=== PATIENT | male | born 1940 | race Caucasian/White ===

== ENCOUNTER → 2017-09-30 | Outpatient (CLI) | payer OTHER ==
[~2017-09-30] MED LIST: BAYER CHEWABLE81 MG PO; CYMBALTA30 MG PO; DOLOPHINE HCL5 MG PO; FISH OIL 1,001000 M2 PO; FLOMAX0.4 MG PO; HYDROCODON-ACE1 EAC5 PO; HYDROCODONE-AP1 EAC6 PO; LISINOPRIL20 MG PO; LOPRESSOR25 PO; METHADONE HCL 110 M1 PO; METHADONE HCL5 MG PO; MOBIC7.5 MG PO; NEURONTIN600 MG PO; NORCO 10-325 T1 EACH PO; SERTRALINE HCL50 MG PO
--- NOTE | 2017-10-16 07:40 | PAINCON ---
[address] [address] PAIN MANAGEMENT CONSULTATION Name: DEBBY BARON Room: [facility] ANIBAL Young#: [id number] Admission: 09/30/17 Attend Phys: Rahat Martinez DO Discharge: Date of : 40 Report #: [id number] THIS REPORT FOR: //name// CC: Rahat Atkinson MD DATE OF SERVICE: 09/30/2017 CHIEF COMPLAINT: Chronic pain. HISTORY OF PRESENT ILLNESS: As you know, the patient is a 77-year-old male followed by my partner, Dr. Carloz De La Rosa, at our [facility] office. Due to convenience, the patient was provided a visit to our clinic here at [facility]. The patient lives in the [place] area and this is much more convenient for the patient to receive medication therapy. He has been referred to our clinic by his physician, Dr. De La Rosa, for continuation of methadone therapy. He is taking 5 mg 3 times a day for baseline pain control. Despite this medication, he continues to report pain level of 4-5/10. States pain is exacerbated with walking, standing, lifting, bending, improves with medications. He is currently in a scooter for ambulation. He has had no changes in medical history since his last visit with Dr. De La Rosa. ALLERGIES: No known drug allergies. CURRENT MEDICATIONS: Aspirin 81 mg per day, omega-3 fish oil 1000 mg per day, gabapentin 600 mg 4 times a day, hydrocodone 10/325 one tab every 4 hours p.r.n. for pain, meloxicam 7.5 mg twice a day, sertraline 100 mg once a day, tamsulosin 0.4 mg once a day, methadone 5 mg t.i.d. SOCIAL HISTORY: Unchanged. The patient denies tobacco use. Denies IV or illicit drug use. He is retired. He is noting decrease activity. He is unaccompanied today. IMAGING: No new imaging available. PHYSICAL EXAMINATION: VITAL SIGNS: Blood pressure 147/68, pulse is 97, respiratory rate 16, unlabored. The patient is 94% on room air, current temperature 98.3 degrees Fahrenheit, height 5 feet 8 inches tall, weight 246.2 pounds, BMI calculated 37.6. GENERAL: Well-developed, well-nourished, well-hydrated, morbidly obese 77-year-old male who appears his stated age. He is placing pain score around 5/10. HEENT: Normocephalic, atraumatic. Pupils equal, round, reactive to light. Extraocular [place] [address] PAIN MANAGEMENT CONSULTATION Name: DEBBY BARON [id number] Admission: 09/30/17 Attend Phys: Rahat Martinez DO Discharge: Date of : 40 Report #: [id number] EXTREMITIES: Show no clubbing, no cyanosis, no edema. MUSCULOSKELETAL: Seated straight leg raising negative. Supine straight leg raising positive. Tressa's test negative. Modified Gaenslen's positive for axial low back pain. Ankle clonus negative. Babinski is negative. Muscle bulk and tone is symmetrical in lower extremities, though weakness noted bilaterally due to deconditioning. ASSESSMENT: 1. Symptomatic lumbar radiculopathy. 2. Lumbosacral spondylosis with radiculopathy. 3. Lumbar degeneration. 4. Failed lumbar spine surgery. 5. Chronic intractable pain. PLAN: 1. The patient returns today in followup visit for medication management. He has transferred his care out to our clinic here at [facility] for continuation of medication therapy due to convenience to his home, reducing the commute time for the patient. He has been established today. He has appointment for refills of his methadone for the next 3 months. He has been utilizing the medication appropriately. Denies any side effects with its use. 2. The patient was provided prescription of methadone 5 mg dose 1 tab p.o. t.i.d., #90, releases of today, 4 weeks from today, 8 weeks from today, 3 months' worth of medication. The patient was advised to take this medication as directed, not to utilize the medication prophylactically. <ELECTRONICALLY SIGNED> By: Rahat Martinez DO 10/16/17 0740 [id number] Martinez DO /nt
== END ==
LOC: M.PC 01:13
DX: M47.27 Other spondylosis with radiculopathy, lumbosacral region (principal); M47.896 Other spondylosis, lumbar region

== ENCOUNTER → 2017-12-31 | Outpatient (CLI) | payer OTHER ==
--- NOTE | 2018-01-15 08:21 | PAINCON ---
[address] [address] PAIN MANAGEMENT CONSULTATION Name: DEBBY BARON Room: [facility] ANIBAL Young#: [id number] Admission: 12/31/17 Attend Phys: Parish Lee MD Discharge: Date of : 40 Report #: [id number] THIS REPORT FOR: //name// CC: Romero Lee DATE OF SERVICE: 12/31/2017 CHIEF COMPLAINT: Chronic back pain. HISTORY OF PRESENT ILLNESS: The patient is a 77-year-old gentleman who has been seen in the pain clinic. This is my first visit with this patient. He has been followed by Dr. Clive Martinez. He has a long history of back problems. He has had back surgeries in the past. Because of the continuous pain he has undergone physical therapy. He has had pain, which was quite problematic. After failure of back surgeries, the patient was then tried on dorsal column stimulator. This failed to significantly improve his function. He has been on opioid medications for some time. He finds that they are helpful, but they have not totally relieve his pain. The patient finds that his pain is still pretty problematic and prevents him from doing a lot of activities of daily living. He has been taking methadone 5 mg 3 times a day for baseline pain control. He notes his pain is exacerbated with walking, standing, lifting, bending, but does improve with his medication. He also finds ambulation problematic. He uses a scooter. ALLERGIES: LIPITOR. CURRENT MEDICATIONS: Aspirin 81 mg chewable, fish oil 1000 mg, gabapentin 600 mg q.i.d., [place] 10/325 one p.o. q. 4-6 hours, Meloxicam 7.5 mg b.i.d., methadone 5 mg t.i.d., Flomax 0.4 mg q. 24 hours. On 12/31/2017, stopped taking Zoloft 50 mg, has a new antidepressant medication, name of which he cannot recall. PAST MEDICAL HISTORY: Hypertension, joint disease/back pain, depression. Abdominal aortic aneurysm judged to be about 6 cm as the patient recalls an hour back to the pain clinic. PAST SURGICAL HISTORY: ____ back surgery in 1980; low back surgery x 4 in 2000, 2010, 2014; right shoulder surgery; bilateral hand surgeries; right knee surgery; left wrist surgery. SOCIAL HISTORY: He used to work in heating and cooling. He has not worked in about 13 years. He is retired. He is . Denies use of tobacco. Used to drink 3-4 [place] [address] PAIN MANAGEMENT CONSULTATION Name: DEBBY BARON Room: [facility]#: [id number] Admission: 12/31/17 Attend Phys: Parish Lee MD Discharge: Date of : 40 Report #: [id number] REVIEW OF SYSTEMS: Chronic back pain, depression, otherwise generally unremarkable. LABORATORY DATA: 1. No new laboratory available at the time of our interview. Old MRI dated 10/03/2015, indicates multilevel disk degeneration and degenerative spondylosis. No evidence of focal disk protrusion or significant stenosis of the central spinal canal. 2. Postsurgical changes at laminectomy extending from L2-L3 through L5-S1. 3. Persistent small posterior epidural and paravertebral seroma, decreasing in size when compared to the previous study. 4. No significant abnormal intraductal contrast enhancement. PAIN CLINIC ASSESSMENT: 1. The patient has some osteoarthritic changes in his low back area. 2. Height 5 feet 8 inches, weight 252 pounds, BMI is 38.4. 3. Vital signs: Blood pressure 150/66, heart rate 68, respiratory rate 16, room air saturation is 98%, temperature 98.4. 4. Pain intensity. The patient rates his pain as a 7-8/10. 5. Fall risk. The patient has not fallen in the last 3 months. He does ambulate with use of a riding cart. 6. Blood thinner. The patient is not on a blood thinner. 7. History of hypertension. The patient is not being treated for hypertension. 8. Opioid therapy greater than 6 weeks. The patient is on an opioid therapy and receives his medications only from 1 physician at our pain clinic. 9. Risk assessment tool. 10. Functional assessment tool. 11. Recreational drug use. The patient denies use of recreational drugs. 12. Tobacco: The patient denies use of tobacco at this juncture. 13. Alcohol. The patient denies significant use of alcohol at this juncture. PHYSICAL EXAMINATION: GENERAL: The patient is a well-developed white male. He is sitting in his electric scooter. Orientation: He is alert and oriented x 3. He appears his stated age. Affect: Appears appropriate. HEENT: Normocephalic, atraumatic. Extraocular eyes muscles intact. NECK: Without JVD or adenopathy. HEART: Regular rate. ABDOMEN: Nontender. EXTREMITIES: Upper extremity, the patient complains of some left arm pain with some pain down his arm. Complains of some weakness in his lower extremity with pain radiating down to his left leg. Note some increased pain with dorsiflexion of his left foot. Muscle strength is judged to be 4/5 for the major muscle groups in the lower extremity. MUSCULOSKELETAL: MAKAYLA test is negative. Modified Gaenslen's positive for axial low back pain. Ankle clonus is negative. Babinskis are negative. [address] [place] [address] PAIN MANAGEMENT CONSULTATION Name: DEBBY BARON Room: [facility]#: [id number] Admission: 12/31/17 Attend Phys: Parish Lee MD Discharge: Date of : 40 Report #: [id number] Appears to be weakness in the lower extremities secondary to deconditioning. IMPRESSION: 1. Symptomatic lumbar radiculopathy. 2. Lumbosacral spondylosis with radiculopathy. 3. Lumbar degeneration. 4. Failed lumbar spine surgery. 5. Failed spinal cord stimulation trial. 6. Chronic intractable pain treated with opioids. 7. Depression. 8. Abdominal aortic aneurysm approximately 5 cm. RECOMMENDATIONS: We discussed treatment options with the patient. We explained the limitations of opioid medications. At this juncture, we will continue with his current medical regimen. We have discussed the prominence of opioid and the news at this juncture. We will continue with his medications at the current level. Hopefully, this continue to be beneficial and he finds that they are worthwhile. Hopefully, they enable him to engage in activities of daily living, he would not be able to without their use. He will call us if he has any problems with his medication. We would like to thank you for letting us participate in his care. We hope he continues to improve. <ELECTRONICALLY SIGNED> By: Parish Lee MD 01/15/18 0821 0935 1546N. Jeremi Lee MD /PMT
== END ==
LOC: M.PC 12-23 09:00
DX: M48.061 Spinal stenosis, lumbar region without neurogenic claudication (principal)

== ENCOUNTER → 2018-03-25 | Outpatient (CLI) | payer OTHER ==
--- NOTE | 2018-03-26 14:14 | PAINCON ---
[address] [address] PAIN MANAGEMENT CONSULTATION Name: DEBBY BARON Room: [facility] ANIBAL Young#: [id number] Admission: 03/25/18 Attend Phys: Parish Lee MD Discharge: Date of : 40 Report #: [id number] THIS REPORT FOR: //name// CC: Romero Lee DATE OF SERVICE: 03/25/2018 FOLLOWUP COMPLAINT: Continued back pain. FOLLOWUP HISTORY: The patient is a 77-year-old gentleman who has been followed in the Pain Clinic. As you recall, he has a long history of back problems. He has undergone a number of treatments. Epidural steroid injections, spinal cord stimulator, use of opioid medications, nonsteroidal anti-inflammatory medications. Other modalities such as Neurontin, but continues to find pain problematic. He finds standing, walking, lifting and other activities of daily living quite problematic. He ambulates with use of a motor scooter. He is having pain in his left knee. It has been quite severe lately. He feels somewhat frustrated because his pain is constant. Notes that he is losing some strength. Unable to do activities which he was able to do previously like work on his car. He feels like the methadone medication might be helpful. He did decrease it to 1 tablet per day for a while. He has resumed 15 mg daily. Overall, he would like to know whether or not any additional changes in his medications could be made that might be beneficial. ALLERGIES: LIPITOR. CURRENT MEDICATIONS: Aspirin 81 mg, fish oil 1000 mg, gabapentin 600 mg q.i.d., [place] 10/325, a total of 6 tablets per day, Meloxicam 7.5 mg b.i.d., methadone 5 mg t.i.d., Flomax 0.4 mg q.24h., and Cymbalta 30 mg b.i.d. PAIN CLINIC ASSESSMENT: 1. The patient has osteoarthritic changes in his low back. Height 5 feet 8 inches, weight 252 pounds, BMI is 38. 2. Vital signs: Blood pressure 155/82, heart rate 63, respiratory rate 18, room air saturation 96, and temperature 98.7. 3. Pain intensity 12/21. 4. Fall risk. The patient has not fallen in the last 3 months. 5. Blood thinner. The patient is not on a blood thinning agent. 6. History of hypertension. The patient is not being treated for hypertension. 7. Opioid therapy greater than 6 weeks. The patient has a history of opioid use and is receiving his medications from the Pain Clinic for methadone and 6 tablets of hydrocodone from his primary physician. 8. Risk assessment tool. 9. Functional assessment tool. 10. Recreational drug use. The patient [place] [address] PAIN MANAGEMENT CONSULTATION Name: DEBBY BARON Room: [facility]#: [id number] Admission: 03/25/18 Attend Phys: Parish Lee MD Discharge: Date of : 40 Report #: [id number] 11. Tobacco: The patient denies use of tobacco at this juncture. 12. Alcohol: The patient denies significant use of alcohol. PHYSICAL EXAMINATION: GENERAL: The patient is a well-developed white male, appears his appropriate age. He is alert and oriented x 3. Speech is smooth and fluent. Affect appropriate. HEENT: Normocephalic, atraumatic. Extraocular muscles intact. Sclerae nonicteric. Hearing within normal limits. NECK: Without JVD or adenopathy. HEART: Regular rate. ABDOMEN: Nontender, slightly protuberant. EXTREMITIES: No clubbing. Upper extremity muscle strength. The patient complains of pain and discomfort in the left arm. States that when he is lifting his arm above his head, there is some limitation in its range of motion. Lower extremity, complains of pain and weakness in his lower extremities with pain radiating down to his left leg. Muscle strength is judged to be 4/5 for the major muscle groups in the lower extremity. MUSCULOSKELETAL: Without significant scoliosis, kyphosis, or lordosis. The patient has some weakness in the lower extremity secondary to deconditioning. IMPRESSION: 1. Sympathetic lumbar radiculopathy. 2. Lumbosacral spondylosis with radicular symptoms. 3. Lumbar degeneration. 4. Failed back lumbar spine surgery. 5. Failed spinal cord stimulation trial. 6. Chronic intractable pain, treated with opioids. 7. Depression. 8. Abdominal aortic aneurysm approximately 5 cm. RECOMMENDATIONS: We discussed treatment options with the patient. The patient feels that his pain is significantly problematic. He is limited in his ability to engage in activities of daily living. Overall, he feels that an improvement in his medication is needed. He is aware of the use of opioid medications causing tolerance as well as possibility of dependence. States that he finds it very difficult to engage in activities secondary to his chronic pain. We explained to him the [facility] rulings. At this juncture, we will increase his methadone from 15 mg per day to 20 mg tablet p.o. b.i.d. Hopefully, this will be enough to bump him and get him over the hope where he will note some more improvement with less pain. The patient to call us if he has any problems with his medications. [facility] [address] [place] [address] PAIN MANAGEMENT CONSULTATION Name: DEBBY BARON Room: [facility] ANIBAL Young#: [id number] Admission: 03/25/18 Attend Phys: Parish Lee MD Discharge: Date of : 40 Report #: [id number] We would like to thank you for letting us participate in his care. We hope he continues to improve. <ELECTRONICALLY SIGNED> By: Parish Lee MD 03/26/18 1414 1331 1518N. Jeremi Lee MD /nt
== END ==
LOC: M.PC 00:34
DX: M47.27 Other spondylosis with radiculopathy, lumbosacral region (principal); M51.16 Intervertebral disc disorders with radiculopathy, lumbar region; G89.4 Chronic pain syndrome; I71.4 Abdominal aortic aneurysm, without rupture; F32.9 Major depressive disorder, single episode, unspecified

== ENCOUNTER → 2018-06-26 | Outpatient (CLI) | payer OTHER ==
--- NOTE | 2018-07-28 10:00 | PAINCON ---
[address] [address] PAIN MANAGEMENT CONSULTATION Name: DEBBY BARON Room: [facility] ANIBAL Young#: [id number] Admission: 06/26/18 Attend Phys: Parish Lee MD Discharge: Date of : 40 Report #: [id number] THIS REPORT FOR: //name// CC: Romero Lee DATE OF SERVICE: 06/26/2018 FOLLOWUP COMPLAINT: Here for medication renewal. FOLLOWUP HISTORY: The patient is a 78-year-old gentleman who has been followed in the pain clinic. As you recall, he has a number of pain generators. He has pain and discomfort involving his shoulders, knees, back and continues to find his pain is helped with medications. He has had epidural steroid injections, spinal cord stimulator and continues to use opioid medications and nonsteroidal anti-inflammatory medications. He feels that the gabapentin medication is helpful as well. He states that he continues to loose muscle strength. He feels weaker as time goes on. He has some difficulty in moving around on a daily basis. He has some problems with his left knee. He does ride in his motor scooter. Rates his pain as a 6-7 on most occasions. He has fallen a couple times since we saw him last. States that he has fallen and fell to his knees. He was answering the door a special delivery lateral was being brought by the mail service. He would like to renew his pain medications at this time. He does have a somewhat depressing outlook, which he says that he can get better, but he has no real options in the near future. ALLERGIES: LIPITOR. MEDICATIONS: Aspirin 81 mg, fish oil 1000 mg, gabapentin 600 mg q.i.d., [place] 10/325 total 6 tablets per day, Meloxicam 7.5 mg b.i.d., methadone 5 mg t.i.d., Flomax 0.4 mg q. 24 hours, and Cymbalta 30 mg b.i.d. PAIN CLINIC ASSESSMENT: 1. The patient has osteoarthritic changes in his low back. He has some signs of arthritic changes in his hands as well. 2. Height 5 feet 8 inches, weight 252 pounds, BMI is 38. 3. VITAL SIGNS: Blood pressure 137/77, heart rate 83, respiratory rate 16, room air saturation 94%, temperature 98.7. 4. Pain score 6-7/10. 5. Fall risk. The patient states that he has fallen a couple times this month. Does use when rolling walker in his home. He does ride on a motorized scooter. 6. History of hypertension. The patient states that he was treated for hypertension, but stopped taking his medication because he did feel he needed it. 7. Opioid therapy greater than 6 weeks. The patient receives his medications from the pain clinic [place] [address] PAIN MANAGEMENT CONSULTATION Name: DEBBY BARON Room: [facility]#: [id number] Admission: 06/26/18 Attend Phys: Parish Lee MD Discharge: Date of : 40 Report #: [id number] 8. Risk assessment tool. 9. Functional assessment tool. 10. Recreational drug use. The patient denies use of recreational drugs. 11. Tobacco: The patient stopped tobacco 30 years ago. 12. Alcohol: The patient denies use of alcoholic beverages. PHYSICAL EXAMINATION: GENERAL: The patient is a well-developed, well-nourished white male, appears his staged age. He is alert and oriented x 3. His affect is appropriate. Speech is fluent. He does complain of some generalized weakness. HEENT: Normocephalic, atraumatic. Extraocular eye muscles are intact. Sclerae are nonicteric. Hearing is within normal limits. Mucous membranes are moist. NECK: Without JVD or adenopathy. HEART: Regular rate. ABDOMEN: Nontender, slightly protuberant. EXTREMITIES: No clubbing, cyanosis or edema. Upper extremity muscle strength judged to be decreasing per the patient's report. Appears to be 5- in the upper extremity. The patient complains of pain and discomfort in the lower portion of his back with pain and discomfort involving the left knee. Notes that there is some difficulty with walking. Muscle strength in the lower extremity judged to be 4/5 for the major muscle groups in the lower extremity per the patient's report. The patient without significant scoliosis, kyphosis, or lordosis. He does ride on a motorized scooter. IMPRESSION: 1. Chronic pain treated with complex medical management using opioid therapy. 2. Sympathetic lumbar radiculopathy. 3. Lumbosacral spondylosis with radicular symptoms. 4. Lumbar degeneration. 5. Failed back syndrome/spine surgery. 6. Failed a spinal cord stimulator trial. 7. Chronic intractable pain, treated with opioids. 8. Depression. 9. Abdominal aortic aneurysm approximately 5 cm. RECOMMENDATIONS: We discussed treatment options with the patient. The patient relates his symptoms and continue to feel that he is weakening. He finds overall that this is depressing given his advancing age. He would like to continue with his medications at this juncture. He has had no complications with their use. We discussed the possible problems with dependence as well as less effectiveness of these medications secondary to tolerance. The patient would like to continue with his current medications at this juncture. A script for his methadone medication has been prescribed. He will continue to take methadone 10 mg 1 p.o. daily. A 3-[place] [address] PAIN MANAGEMENT CONSULTATION Name: DEBBY BARON [facility] [id number] Admission: 06/26/18 Attend Phys: Parish Lee MD Discharge: Date of : 40 Report #: [id number] We would like to thank you for letting us participate in his care. We hope he continues to improve. <ELECTRONICALLY SIGNED> By: Parish Lee MD 07/28/18 1000 [id number] 1304N. Jeremi Lee MD /nt
== END ==
LOC: M.PC 06-17 03:45
DX: M47.27 Other spondylosis with radiculopathy, lumbosacral region (principal); M51.16 Intervertebral disc disorders with radiculopathy, lumbar region; I71.2 Thoracic aortic aneurysm, without rupture; F32.9 Major depressive disorder, single episode, unspecified; G89.4 Chronic pain syndrome; Z79.899 Other long term (current) drug therapy

== ENCOUNTER → 2018-09-18 | Outpatient (CLI) | payer OTHER ==
--- NOTE | 2018-09-19 17:20 | PAINCON ---
[address] [address] PAIN MANAGEMENT CONSULTATION Name: DEBBY BARON Room: [facility] ANIBAL Young#: [id number] Admission: 09/18/18 Attend Phys: Parish Lee MD Discharge: Date of : 40 Report #: [id number] THIS REPORT FOR: //name// CC: Romero Lee DATE OF SERVICE: 09/18/2018 CHIEF COMPLAINT: Continued knee pain and back pain. FOLLOWUP HISTORY: The patient is a 78-year-old gentleman who has been followed in the pain clinic. As you recall, he has a number of pain generators. He has pain and discomfort involving his shoulders, knees, back as well as knee pain. He feels that his medications are helpful. Feels that they are less effective. He would like to change his medications from use of methadone to only hydrocodone. He has had an epidural steroid injection and spinal cord stimulator use. He feels that his medications of gabapentin are still helpful. He feels that he is getting weaker as time goes on. He is having more and more difficulty getting around. Continues to use a motor scooter. He rates his pain a 6-7 on occasion, rates it as a 7 today. States that he does fall somewhat frequently. He has returned today for renew of his medications. He feels that the government is too involved in pain medication. He feels that they are limiting the amount of medication that he is able to get therefore causing him to endure more pain than he would like. ALLERGIES: LIPITOR. MEDICATIONS: Aspirin 81 mg, fish oil 1000 mg, gabapentin 600 mg q.i.d., [place] 10 mg, total of 6 tablets per day, Meloxicam 7.5 mg b.i.d., methadone 10 mg p.o. b.i.d., Flomax 0.5 mg q.24 hours, Cymbalta 30 mg b.i.d. PAIN CLINIC ASSESSMENT/PQRS: 1. 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 Has changes in his hand as well as in his knee. The patient has not been treated for rheumatoid arthritis. 2. Height 5 feet 8 inches, weight 252 pounds, BMI is 38. 3. VITAL SIGNS: Blood pressure is 140/75, heart rate 84, respiratory rate 16, room air saturation 93%, temperature 98.5. 4. Pain intensity 5/10. 5. Fall risk. The patient states that he does frequently fall, has not needed to go to the Emergency Room. Has difficulty ambulating. Continues to use his motor scooter, which is motorized. 6. History of hypertension. The patient is being treated for hypertension. He stopped this medication because he did not feel he needed it. 7. Opioid therapy greater than 6 weeks. The [place] [address] PAIN MANAGEMENT CONSULTATION Name: DEBBY BARON Patti [id number] Admission: 09/18/18 Attend Phys: Parish Lee MD Discharge: Date of : 40 Report #: [id number] from 1 source, the pain clinic for methadone. The patient states that he gets the hydrocodone medication from his other doctor. 8. Risk assessment tool. 9. Functional assessment tool. 10. Recreational drug use. The patient denies use of recreational drugs. 11. Tobacco: The patient stopped smoking 30 years ago. 12. Alcohol: The patient denies use of alcoholic beverages. PHYSICAL EXAMINATION: GENERAL: The patient is a well-developed, well-nourished white male. Appears his stated age. He is alert and oriented x 3. Affect is appropriate. Speech is fluent. HEENT: Normocephalic, atraumatic. Extraocular eye muscles intact. Sclerae nonicteric. Mucous membranes moist. Hearing is within normal limits. HEART: Regular rate. ABDOMEN: Nontender, protuberant. EXTREMITIES: Upper extremity muscle strength is judged to be -5/5 for the upper muscles. The patient complains of pain and discomfort in lower portion of his back with pain involving his left knee. Has difficulty walking, difficulty going from a sitting to a standing position. He rates his pain as a 4-5 for the major muscle groups in the lower extremity. The patient is without significant scoliosis, kyphosis, or lordosis. Does continue to drive and ambulates with use of his motor scooter. IMPRESSION: 1. Chronic pain treated with complex medical management using opioid medication. 2. Sympathetic lumbar radiculopathy. 3. Lumbosacral spondylosis with radiculopathy symptoms. 4. Lumbar degeneration. 5. Failed back syndrome/spine surgery. 6. Failed spinal cord stimulator trial. 7. Chronic intractable pain. 8. Depression. 9. Aortic aneurysm approximately 5 cm. The patient is watching this. RECOMMENDATIONS: We discussed treatment options with the patient. At this juncture, we again had a discussion in regards to use of opioid medications. The patient would like to go to short-acting medication of hydrocodone on an 8 tablets per day. We explained to him that most of his pain programs would recommend use of a long-acting opioid medication, followed by a short-acting opioid medication. A script for methadone has been rewritten. The patient will continue with 10 mg 1 p.o. b.i.d. A script for 3 months, has been written. The [address] [place] [address] PAIN MANAGEMENT CONSULTATION Name: TODDEBBY Patti Room: [facility]#: [id number] Admission: 09/18/18 Attend Phys: Parish Lee MD Discharge: Date of : 40 Report #: [id number] patient will call us if he has any concerns. We would like to thank you for letting us participate in his care. We hope he continues to improve. <ELECTRONICALLY SIGNED> By: Parish Lee MD 09/19/18 1720 [id number]. Jeremi Lee MD /[facility]
== END ==
LOC: M.PC 04:41
DX: M47.27 Other spondylosis with radiculopathy, lumbosacral region (principal); M51.16 Intervertebral disc disorders with radiculopathy, lumbar region; G89.4 Chronic pain syndrome; F32.9 Major depressive disorder, single episode, unspecified; I71.9 Aortic aneurysm of unspecified site, without rupture; Z79.891 Long term (current) use of opiate analgesic

== ENCOUNTER → 2018-12-11 | Outpatient (CLI) | payer OTHER ==
--- NOTE | ~2018-12-11 | PAINCON ---
[address] [address] PAIN MANAGEMENT CONSULTATION Name: DEBBY BARON Room: [facility] ANIBAL Young#: [id number] Admission: 12/11/18 Attend Phys: Parish Lee MD Discharge: Date of : 40 Report #: [id number] THIS REPORT FOR: //name// CC: Romero Lee DATE OF SERVICE: 12/11/2018 CHIEF COMPLAINT: Here for medication renewal. FOLLOWUP HISTORY: The patient is a 78-year-old gentleman who has been followed in the pain clinic. He has a number of pain generators. Has pain involving his shoulders, knees, and back. He feels that his pains are helped with his current medications. He has had epidural steroid injections in the past. Has a spinal cord stimulator. Feels that the gabapentin medication still was helpful. Does continue to feel that he is becoming more and more weak. More dependent on his motor scooter. He is somewhat discombobulated with the weakening condition that he finds himself in. He is fearful that one day he will be unable to walk. Rates his pain as 5/10 at this juncture. Does have a hot tub, but finds it difficult to get in and out of a hot tub at this juncture, because of his condition. ALLERGIES: LIPITOR. MEDICATIONS: Aspirin 81 mg, fish oil 1000 mg, gabapentin 600 mg q.i.d., [place] 10 mg, total of 6 tablets per day, Meloxicam 7.5 mg b.i.d., methadone 10 mg 1 p.o. b.i.d., Flomax 0.5 mg q. 24 hours, and Cymbalta 30 mg b.i.d. PAIN CLINIC ASSESSMENT AND PQRS: 1. The patient has some arthritic changes in his lower back. Has some discomfort in his knee. He is not being treated for rheumatoid arthritis. 2. Height 5 feet 8 inches, weight 250 pounds, BMI is 38. 3. Vital signs: Blood pressure 134/72, heart rate 81, respiratory rate 16, room air saturation is 97%, and temperature 98.8. 4. Pain intensity is 5/10. 5. Fall history: The patient has not fallen, but does need use of his hands and uses a walker at home, uses a motorized scooter to get around outside the home. 6. History of hypertension. The patient is being treated for hypertension, in the past, stopped medication because he feels he no longer needs it. 7. Opioid therapy greater than 6 weeks. The patient receives this medication from one source, the pain clinic. 8. Risk assessment tool, low. 9. Functional assessment tool. 10. Recreational drug use. The patient denies use of recreational drugs. 11. Tobacco: The patient stopped smoking [place] [address] PAIN MANAGEMENT CONSULTATION Name: DEBBY BARON Room: [facility]#: [id number] Admission: 12/11/18 Attend Phys: Parish Lee MD Discharge: Date of : 40 Report #: [id number] 12. Alcohol: The patient denies use of alcoholic beverages, but occasionally drinks a beer p.r.n. PHYSICAL EXAMINATION: GENERAL: The patient is a well-developed, well-nourished white male. Appears his stated age. He is alert and oriented x 3. Affect is appropriate. Speech is fluent. HEENT: Normocephalic, atraumatic. Extraocular eye muscles intact. Sclerae nonicteric. Mucous membranes are moist. NECK: Without adenopathy or JVD. HEART: Regular rate. ABDOMEN: Nontender, protuberant. Bowel sounds present. EXTREMITIES: Upper extremity muscle strength is judged to be 5-/5 for the upper extremity muscles. The patient has pain and discomfort in the lower portion of his back with some pain involving his left knee. Has difficulty walking and moving. He uses his hands and needs assistance in going from a sitting position in a chair to a standing position. Need some help going from the standing position to get on his scooter. Lower extremity muscle strength is judged to be 4-/5 for the major muscle groups. The patient without significant scoliosis, kyphosis, or lordosis. IMPRESSION: 1. Chronic pain with complex medical management, treated with opioid therapy. 2. Symptomatic lumbar radiculopathy. 3. Lumbosacral spondylosis with radicular symptoms. 4. Lumbar degeneration. 5. Failed back syndrome/spine surgery. 6. Failed spinal cord stimulator trial. 7. Chronic intractable pain. 8. Depression. 9. Aortic aneurysm approximately 5 cm. The patient states he is watching it. RECOMMENDATIONS: We discussed treatment options with the patient. Risks and benefits of opioid medications were again discussed. Their benefits and limitations were discussed. Possibility of decreased efficacy may resolve as a result of development of tolerance. The patient also is aware of the possibility of development of dependence on these medications and addiction. He feels that the medication is helpful. He is unable to engage in activities of daily living. He would not be able to without their use. Keeps his medications in a guarded area. He will call us if he has any concerns. [address] [place] [address] PAIN MANAGEMENT CONSULTATION Name: DEBBY BARON [facility] [id number] Admission: 12/11/18 Attend Phys: Parish Lee MD Discharge: Date of : 40 Report #: [id number] We would like to thank you for letting us participate in his care. We hope he continues to improve. By: [id number]. Jeremi Lee MD /nt
== END ==
LOC: M.PC 10:30
DX: M47.27 Other spondylosis with radiculopathy, lumbosacral region (principal); M25.511 Pain in right shoulder; M25.512 Pain in left shoulder; M25.561 Pain in right knee; M25.562 Pain in left knee; I71.9 Aortic aneurysm of unspecified site, without rupture; I10 Essential (primary) hypertension; Z88.8 Allergy status to other drugs, medicaments and biological substances; Z79.899 Other long term (current) drug therapy; Z79.891 Long term (current) use of opiate analgesic; Z87.891 Personal history of nicotine dependence

== ENCOUNTER → 2019-03-05 | Outpatient (CLI) | payer OTHER ==
--- NOTE | ~2019-03-05 | PAINCON ---
[address] [address] PAIN MANAGEMENT CONSULTATION Name: DEBBY BARON Room: [facility] ANIBAL Young#: [id number] Admission: 03/05/19 Attend Phys: Parish Lee MD Discharge: Date of : 40 Report #: [id number] THIS REPORT FOR: //name// CC: Romero Lee DATE OF SERVICE: 03/05/2019 CHIEF COMPLAINT: "Here for medication renewal. The pain medicine is helpful. ____ some water down in my basement because of the rain." HISTORY OF PRESENT ILLNESS: The patient is a 78-year-old gentleman who has been followed in the pain clinic. As you recall, he has a number of pain in full areas. He has pain in his shoulders, knees, and back. He feels that his medications provide him benefit. He is able to engage in activities, he would not be able to do without their use. Overall, he feels that the medications are helpful. They are not as helpful as he would like, but he is taking them as prescribed. He has pain in the low back area. He has pain in his groin and he has pain in the buttocks. He feels that his left knee has been hurting. He did see a surgeon. He did undergo an injection into the knee. At this juncture, it has not been very fruitful. He rates his pain as a 5/10. He notes that activities such as walking, standing, sitting, bending can exacerbate his discomfort. He is experiencing some water in his basement. He is going to "roller picker some items to help curtail that problem." He would like to have his medications renewed. ALLERGIES: LIPITOR. CURRENT MEDICATIONS: Aspirin 81 mg, fish oil 1000 mg, gabapentin 600 mg q.i.d., [place] 10 mg 6 tablets daily, Meloxicam 7.5 mg b.i.d., methadone 10 mg 1 p.o. b.i.d., Flonase 0.5 mg q. 24 hours and Cymbalta 30 mg b.i.d. PAIN CLINIC ASSESSMENT/PQRS: 1. The patient has some arthritic changes in the low portion of his back. Also, he has some pain in his knee. He did undergo a knee injection. He has not been treated for rheumatoid arthritis. 2. Height 5 feet 8 inches, weight 250 pounds, BMI is 38. 3. Pain intensity 5/10. 4. Fall history. The patient has not fallen in the last 3 months. He does use a motorized vehicle. He uses a walker when he is at home and uses 2 canes. 5. History of hypertension. The patient is being treated for hypertension. The patient did stop this medication because he felt he no longer needed it. 6. Opioid greater than 6 weeks. The patient receives medication from one source. 7. Risk assessment tool, low for opioid use. 8. [place] [address] PAIN MANAGEMENT CONSULTATION Name: DEBBY BARON Room: [facility] Young#: [id number] Admission: 03/05/19 Attend Phys: Parish Lee MD Discharge: Date of : 40 Report #: [id number] 9. Recreational drug use. The patient denies use of recreational drugs. 10. Tobacco: The patient stopped smoking 10 years ago. 11. Alcohol: The patient denies use of alcoholic beverages, except on occasion. PHYSICAL EXAMINATION: GENERAL: The patient is a well-developed, well-nourished white male. He appears his stated age. He is alert and oriented x 3. His affect is appropriate. Speech is engaging today. HEENT: Normocephalic, atraumatic. Extraocular eye muscles intact. Sclerae nonicteric. Mucous membranes moist. NECK: Without adenopathy or JVD. HEART: Regular rate. ABDOMEN: Protuberant. Bowel sounds present. EXTREMITIES: Upper extremity muscle strength is judged to be 5-/5 for the upper extremities. The patient complains of pain and discomfort in lower portion of his back with weakness in his lower extremities. He notes that pain is more problematic with activities such as walking, standing, going from a sitting to a standing position. The patient is without significant scoliosis, kyphosis or lordosis. Lower extremity muscle strength 4-/5. IMPRESSION: 1. Chronic pain treated with complex medical management and opioid therapy. 2. Symptomatic lumbar radiculopathy. 3. Lumbosacral spondylosis with radicular symptoms. 4. Lumbar degeneration. 5. Failed back syndrome/spine surgery. 6. Failed a spinal cord stimulator trial. 7. Chronic intractable pain. 8. Depression. 9. Aortic aneurysm of 5 cm. The patient states that they are watching it. RECOMMENDATIONS: We discussed treatment options with the patient. At this juncture, we will continue with his medications. Possible complication of opioid use have been discussed with the patient on numerous occasions. They include less effectiveness secondary to development of tolerance, dependency. The patient does not feel that he is dependent. He has not been showing signs of dependence. We will renew the patient's medications. A script for his medications have been written. The patient will continue with methadone 10 mg 1 p.o. b.i.d. He will call us if he has any concerns. The patient is no longer using morphine [address] [place] [address] PAIN MANAGEMENT CONSULTATION Name: DEBBY BARON Room: [facility].#: [id number] Admission: 03/05/19 Attend Phys: Parish Lee MD Discharge: Date of : 40 Report #: [id number] We would like to thank you for letting us participate in his care. We hope he continues to improve. By: [id number]. Jeremi Lee MD /nt
== END ==
LOC: M.PC 02:26
DX: G89.29 Other chronic pain (principal); M47.27 Other spondylosis with radiculopathy, lumbosacral region; F32.9 Major depressive disorder, single episode, unspecified; I10 Essential (primary) hypertension; Z88.8 Allergy status to other drugs, medicaments and biological substances; Z79.899 Other long term (current) drug therapy; Z79.891 Long term (current) use of opiate analgesic; Z87.891 Personal history of nicotine dependence

== ENCOUNTER → 2019-05-28 | Outpatient (CLI) | payer OTHER ==
[~2019-05-28] MED LIST changes: +LYRICA150 MG PO
--- NOTE | ~2019-05-28 | PAINCON ---
[address] [address] PAIN MANAGEMENT CONSULTATION Name: DEBBY BARON Room: [facility] ANIBAL Young#: [id number] Admission: 05/28/19 Attend Phys: Parish Lee MD Discharge: Date of : 40 Report #: [id number] THIS REPORT FOR: //name// CC: Parish Steward DATE OF SERVICE: 05/28/2019 CHIEF COMPLAINT: Spinal stenosis with weakness in hands and low back and down to the legs. HISTORY: The patient is a 78-year-old gentleman who has been followed in the pain clinic. As you recall, he has pain and discomfort, which is quite problematic. He has a history of arthritic changes involving his hands. He states that he has had 4-5 back surgeries. He continues to find that his back pain as well as his lower extremity muscle strength continues to deteriorate. He does ambulate with use of an electric car. He has an abdominal aortic aneurysm as well. He notes that his pain is worse in the morning. He feels that his gabapentin medication is helping. He has a brother who had tried Lyrica. He tried Lyrica in the past. The medication now appears to be in generic form. He states that instead of $300, it was about $9. The patient would like to try this medication and see whether or not he can glean more benefit from it and his current gabapentin. ALLERGIES: LIPITOR. MEDICATIONS: Aspirin 81 mg, fish oil 1000 mg, gabapentin 600 mg q.i.d., Meloxicam 7.5 mg, methadone 10 mg 1 p.o. b.i.d., Flonase 0.5 mg every 12 hours, Cymbalta 30 mg b.i.d. PAIN CLINIC ASSESSMENT/PQRS: 1. The patient has some arthritic changes in the lower portion of his back. He also has pain in his knees. He has undergone knee injections. He is not being treated for rheumatoid arthritis. 2. Height 5 feet 8 inches, weight 250 pounds, BMI is 38. 3. Vital Signs: Blood pressure 143/79, heart rate 66, respiratory rate 16, room air saturation 91%, and temperature 98.4. 4. Pain intensity, 7/10. 5. Fall history: The patient has not fallen in the last 3 months. 6. Blood thinner. The patient is not on a blood thinning medication. 7. Opioids greater than 6 weeks. The patient receives medication from one source, the pain clinic. 8. Recreational drug use. The patient denies. PHYSICAL EXAMINATION: GENERAL: The patient is a well-developed, well-[place] [address] PAIN MANAGEMENT CONSULTATION Name: DEBBY BARON Room: [facility]#: [id number] Admission: 05/28/19 Attend Phys: Parish Lee MD Discharge: Date of : 40 Report #: [id number] his stated age. He is alert and oriented x 3. He is riding on an electric cart. HEENT: Normocephalic, atraumatic. Extraocular eye muscles intact. Sclerae nonicteric. NECK: Without adenopathy or JVD. HEART: Regular rate. ABDOMEN: Protuberant. Bowel sounds present. EXTREMITIES: Upper extremity muscle strength, the patient strength judged to be 4+/5 for the upper extremities. Has changes in his fingers consistent with ostial/rheumatoid changes. The patient has difficulty in standing. He is on the riding chair. He states his legs continue to be weak. He has more difficulty standing and ambulating at home or in public. The patient has well-healed scars in the lower portion of his back. Muscle strength in the lower extremities judged to be 4-/5. IMPRESSION: 1. Chronic pain with complex medical management. He has been using opioid therapy. 2. Symptomatic lumbar radiculopathy. 3. Lumbosacral spondylosis with radicular symptoms. 4. Lumbar degeneration. 5. Failed back syndrome/spine surgery. 6. Failed spinal cord stimulator trial. 7. Chronic intractable pain. 8. Depression. 9. Aortic aneurysm of 5 cm size. The patient states that they are watching this. He does not want to undergo surgery. He is aware of the possible complications. RECOMMENDATIONS: We discussed treatment options with the patient. At this juncture, we will continue with his opioid medications of methadone. A script for his medications has been written. He will continue with the medications as prescribed. He has noticed the chandra of Lyrica has come down. He would like to try Lyrica instead of gabapentin. A script for Lyrica 150 mg 1 p.o. b.i.d. has been provided to the patient. He will call us if he has any problems with the medications. We would like to thank you for letting us participate in his care. We hope he continues to improve. By: [id number]. Jeremi Lee MD /leslie
== END ==
LOC: M.PC 04:49
DX: M47.27 Other spondylosis with radiculopathy, lumbosacral region (principal); M51.16 Intervertebral disc disorders with radiculopathy, lumbar region; G89.29 Other chronic pain; F32.9 Major depressive disorder, single episode, unspecified; I71.9 Aortic aneurysm of unspecified site, without rupture; Z79.891 Long term (current) use of opiate analgesic

== ENCOUNTER → 2019-06-22 | Outpatient (CLI) | payer OTHER | LOC: M.MRI 15:26 | DX: S83.232A Complex tear of medial meniscus, current injury, left knee, initial encounter (principal); S83.282A Other tear of lateral meniscus, current injury, left knee, initial encounter; M17.12 Unilateral primary osteoarthritis, left knee; M25.762 Osteophyte, left knee; M25.462 Effusion, left knee; M25.862 Other specified joint disorders, left knee; Z96.652 Presence of left artificial knee joint; X58.XXXA Exposure to other specified factors, initial encounter; Y93.89 Activity, other specified; Y92.89 Other specified places as the place of occurrence of the external cause; Y99.8 Other external cause status ==

== ENCOUNTER 2019-07-21 06:55 | Inpatient (IN) | payer OTHER ==
[2019-07-09 09:14] LABS: HEMATOCRIT 39.6 % (42.0-52.0); HEMOGLOBIN 13.6 gm/dL (14.0-18.0); MCH 29.5 pg (26.0-34.0); MCHC 34.2 g/dL (28.0-37.0); MCV 86.2 fL (80.0-100.0); MPV 8.4 fl. (7.2-11.1); RBC 4.6 mil/uL (4.50-6.00); RDW-CV 14.9 % (10.5-14.5); WBC 6.4 thou/uL (4.0-11.0)
[2019-07-09 09:35] LABS: ALBUMIN 3.4 g/dL (3.4-5.0); CALCIUM 8.7 mg/dL (8.5-10.1); CREATININE 0.8 mg/dL (0.6-1.3); POTASSIUM 4.1 mmol/L (3.5-5.1); TOTAL BILIRUBIN 0.3 mg/dL (<0.1-1.0)
[2019-07-09 10:59] LABS: URINE BILIRUBIN NEGATIVE (Negative); URINE BLOOD NEGATIVE (Negative); URINE CLARITY CLEAR; URINE COLOR YELLOW; URINE GLUCOSE-RANDOM NEGATIVE (Negative); URINE KETONES NEGATIVE (Negative); URINE LEUKOCYTES-REFLEX TRACE (Negative); URINE NITRITE-REFLEX NEGATIVE (Negative); URINE PROTEIN NEGATIVE (Negative); URINE SPECIFIC GRAVITY 1.015 (1.005-1.030); URINE UROBILINOGEN 0.2 E.U./dl (0.2-1.0)
[2019-07-09 11:10] LABS: SQUAMOUS 4-10 Moderate /LPF (0-3); WBC CLUMPS Few (None Seen)
[2019-07-09 11:11] LABS: URINE RBC None Seen /HPF (0-2)
[2019-07-09 11:12] LABS: CASTS None Seen /LPF (None Seen); CRYSTALS None Seen /LPF (None Seen); MUCUS 4-6 Moderate strn/LPF (None Seen)
--- NOTE | 2019-07-09 16:17 | EKG ---
[place] [address] ELECTROCARDIOGRAM REPORT Name: DEBBY BARON Room: [facility].#: [id number] Admission: Attend Phys: Evon Renteria Discharge: Date of : 40 Report #: [id number] THIS REPORT FOR: //name// [facility] Test Date: 2019-07-09 Test Time: 09:47:16 Pat Name: DEBBY BARON Department: Room: Gender: M Disc Pad Plate Filler: RT : 1940 Requested By: Debby Del Valle Order Number: [id number] Reading MD: Wang Marquez Measurements Intervals [place] Rate: 70 P: 43 CT: 204 QRS: 19 QRSD: 104 T: 68 QT: 395 QTc: 427 Interpretive Statements Sinus rhythm RSR' in V1 or V2, right VCD or RVH No previous ECG available for comparison Electronically Signed On 07-09-2019 16:16:51 CDT by Wang Marquez [email or web address] <ELECTRONICALLY SIGNED> By: Wang Marquez MD, [facility] 07/09/19 1616 0947 [id number] Wang Marquez MD, FACC /EPI
[~2019-07-21] VITALS: Ht 152.4 cm; Wt 113.4 kg
[2019-07-21] VITALS (13 sets, daily range): BP systolic 123–158; BP diastolic 64–84
[~2019-07-21 06:55] MED LIST changes: +STOOL SOFT50 MG/5 ML PO
[2019-07-22] VITALS (12 sets, daily range): BP systolic 121–153; BP diastolic 58–83
--- NOTE | 2019-07-22 00:55 | NUR ---
RECEIVED REPORT AND ASSUMED CARE AT 1900. VSS. ICU MONITORING IN PLACE. PT REPORTS PAIN. MEDICATION PER EMAR. ASSESSMENT COMPLETED CHARTED. PT REPORTS NEEDING TO URINATE, ONLY 50ML OUT ON SECOND ATTEMPT. BLADDER SCAN COMPLETED, SHOWING 956ML. BALL CATH INSERTED, OUTPUT 1100 ML UPON INSERTION. CMP IN PLACE/ POLAR PACKIN PLACE. DRESSING DRY AND INTACT, HEMO VAC INTACT. BED LOCKED IN LOWEST POSITION, CALL LIGHT WITHIN REACH, BED ALARM ON.
[2019-07-22 04:59] LABS: HEMATOCRIT 38.3 % (42.0-52.0); HEMOGLOBIN 12.5 gm/dL (14.0-18.0)
--- NOTE | 2019-07-22 10:30 | NUR ---
PT.UP IN CHAIR AFTER P.T. HE WAS ALERT AND ORIENTED. STATED HE LIVES WITH IS . SHE CAN HELP HIM WHEN HE GOES HOME IF NEEDED. HE SAID THEY HAVE BOTH BEEN HAVING MEMORY PROBLEMS LATELY. NOTHING SEVERE, JUST MEMORY IS NOT GOOD IT HAD BEEN. HE HAS A WALKER AT HOME. HE WILL HAVE HIS BRING IT IN. STATED PAIN IS NOT MUCH BETTER. HAD POLAR PACK ON KNEE. HE SAID HE IS RETIRED. HAS ALOT OF BACK PAIN ALSO DUE TO SPINAL STENOSIS. HE IS FAIRLY INDEPENDENT. HE IS AGREEABLE TO HOME HEALTH WITH [employer] FOR THE FIRST 2 WEEKS AND THEN HOPES TO BE ABLE TO DO OUTPT. THERAPY AT [facility].
--- NOTE | 2019-07-22 12:19 | NUR ---
PATIENT TRANSFERED TO 3RD FLOOR REPORT GIVEN TO LAYTON ASTUDILLO. PT UP WITH PT AND OT. BALL AND DRAIN DCD. PAIN CONTROLLED WITH NORCO. ATTEMPTED TORADOL. CO PAIN AGAIN.
--- NOTE | 2019-07-22 12:49 | NUR ---
PT TRANSFERRED TO UNIT FROM ICU. REPORT AT BEDSIDE BY RUKHSANA RN, ICU. THIS NURSE REVIEWED AND AGREES WITH AM REASSESSMENT. PT TRANSPORTED TO UNIT WITH ALL PERSONAL BELONINGINGS, SPOUSE ACCOMPANIED. PO PAIN MEDICATIONS DISPENSED ORDERED IN ANTICIPATION OF P/T AT 1300. PT RESTING IN RECLINER WITH LUNCH TRAY. CALL LIGHT IN REACH.
--- NOTE | 2019-07-22 18:34 | NUR ---
PT A&OX3 VSS. PT RESTS IN RECLINER WITH CALL LIGHT AND PHONE IN REACH. POLAR PAC PLACED TO L KNEE. PO GABAPENTIN AND IV TORADOL ADMINISTERED FOR COMFORT. SURGICAL DRESSING INTACT AND CLEAN. SBA WITH WALKER.
--- NOTE | 2019-07-22 20:55 | OP ---
[facility] [address] [place] [address] OPERATIVE REPORT Name: DEBBY BARON Room: [address] M.R.#: [id number] Admission: 07/21/19 Attend Phys: Evon Renteria Discharge: Date of : 40 Report #: [id number] THIS REPORT FOR: //name// CC: Romero Del Angel DATE OF SERVICE: 07/21/2019 PREOPERATIVE DIAGNOSIS: Left knee osteoarthritis. POSTOPERATIVE DIAGNOSIS: Left knee osteoarthritis. PROCEDURE: Left total knee arthroplasty. SURGEON: Debby Del Valle II, DO. BARKER PEELER: FRANCISCO Casillas. ANESTHESIA: General endotracheal. ESTIMATED BLOOD LOSS: 50 mL. ANTIBIOTICS: Ancef preoperatively. DRAINS: Medium Hemovac. COMPLICATIONS: None. CONDITION: Stable to the recovery room. IMPLANTS: Listed in operative record and progress note. BRIEF HISTORY: The patient was seen in the preoperative area. Preoperative H and P was performed. Site was marked, questions were answered. Risks and benefits were discussed with the patient in detail about surgery. The patient wished to proceed, assuming all risks. DESCRIPTION OF PROCEDURE: The patient was taken to the operative suite and placed supine on the OR table, given appropriate anesthesia. The patient had a well-padded tourniquet applied to the upper thigh, which was inflated to 300 mmHg after gravity exsanguination for duration of procedure. The operative knee was sterilely prepped and draped. Surgery began by midline incision. This was carried down to the subcutaneous tissues. A medial parapatellar arthrotomy was performed and carried down to bone. The patella was then everted and excess soft tissue removed from around the femur. Femoral cutting block was then [facility] [address] [place] [address] OPERATIVE REPORT Name: DEBBY BARON Room: [address] M.R.#: [id number] Admission: 07/21/19 Attend Phys: Evon Renteria Discharge: Date of : 40 Report #: [id number] applied, checked with a drop yamil for rotational alignment, pinned in appropriate position and appropriate cuts were made. A 4-in-1 cutting block was then applied, checked for rotational alignment, pinned in appropriate position and appropriate cuts were made. The tibia was then exposed. Excess meniscus was removed. Retraction was placed on collateral ligaments. The tibial cutting block was then applied, pinned in appropriate position, checked with a drop yamil for rotational alignment and slope and appropriate cut was made. The tibial bone was removed. The tibial base plate was then applied, checked for rotational alignment with the drop yamil and pinned in appropriate position. The femur was then applied and box cut was reamed. This was then trialed with appropriate spacer, which showed excellent fit and fill and excellent stability of the knee through all range of motion. The patella was then reamed in appropriate fashion and sized to appropriate size. Three peg holes were drilled and it was then trialed and showed excellent flexion, extension, excellent tracking of the patella within the groove. These trials were then removed. The tibia was punched in appropriate fashion. Bone ends were cleansed with Pulsavac irrigation and cement was mixed and applied to final implants. These were then malleted into position and held the knee in extension and compressed to allow cement to cure. After it cured, excess cement was removed using a Roberts and osteotome. Wound was then copiously irrigated and the final spacer was then malleted into position. Tourniquet was deflated. Hemostasis was obtained with electrocautery. Pain cocktail was injected. PRP gel sprayed throughout the internal aspects of the knee. Medium Hemovac drain was applied. The capsule was closed with #2 FiberWire and #1 Vicryl in [id number] fashion. Skin was closed with 2-0 Vicryl and a running 3-0 Monocryl. Dermabond and sterile dressing applied. Miky wrap and PolarCare applied. The patient was transported to recovery room in stable condition. Counts were correct throughout the procedure. <ELECTRONICALLY SIGNED> By: Debby Del Valle II, DO 07/22/19 2055 [id number] Del Valle II, DO /nt
[2019-07-23 03:52] VITALS: BP 146/73
[2019-07-23 04:38] LABS: HEMATOCRIT 32.3 % (42.0-52.0)
--- NOTE | 2019-07-23 05:38 | NUR ---
PATIENT SLEPT PART OF THE NIGHT. PATIENT STATED THE PAIN PILLS WERE NOT REALLY HELPING AND PATIENT COULD NOT SLEEP. PATIENT WAS GIVEN MORPHINE IV TWICE FOR PAIN WITH BETTER RELIEF. POLAR PACK REMAINS IN PLACE TO LEFT KNEE. WILL CONTINUE TO MONITOR.
[2019-07-23 08:10] VITALS: BP 105/69
[2019-07-23 15:00] VITALS: BP 131/58
--- NOTE | 2019-07-23 16:12 | NUR ---
Pt wanted to discuss dc planning with case management again as pt says that he thinks he will dc tomorrow. SW discussed HH services in more detail and pt did not have any other questions or concerns at this time. SW to continue to follow to assist with safe dc planning.
--- NOTE | 2019-07-23 18:12 | NUR ---
PATIENT RESTING IN BED. APTIENT HAS BEEN UP WITH PHYSICAL THERAPY X 2 TODAY. PATIENT HAS BEEN IN CPM X 2 TODAY. PATIENT HAS COMPLAINTS OF PAIN, CONTROLLED WITH PAIN MEDICATION. PATIENT HAS GOOD APPETITE. PATIENT DENIES ANY NEEDS AT THIS TIME. CALL LIGHT WITHIN REACH.
[2019-07-23 22:47] VITALS: BP 138/65
--- NOTE | 2019-07-24 06:31 | NUR ---
PATIENT SLEPT PART OF THE NIGHT. PATIENT WAS GIVEN PAIN PILLS WITH SOME RELIEF. POLAR PACK REMAINS IN PLACE TO LEFT KNEE. PATIENT IS POSSIBLY GOING HOME TODAY. WILL CONTINUE TO MONITOR.
--- NOTE | 2019-07-24 10:43 | NUR ---
Nutrition: Pt assessed for high BMI. Wt: 250#. Admitted for OA of Lt knee. Possible disch home today. Eating well on regular diet. Labs, RX, Hx noted. Low risk.
[2019-07-24] MEDS ORDERED: XARELTO10 MG PO (13:38)
[2019-07-24] MEDS ORDERED: MIRALAX17 GM PO (13:38)
[2019-07-24] MEDS ORDERED: DOK PLUS TABLE1 EACH PO (13:53)
[2019-07-24 14:06] VITALS: BP 138/65
[2019-07-24 15:05] VITALS: BP 138/65
[2019-07-24 15:27] VITALS: BP 138/65
--- NOTE | 2019-07-24 15:31 | NUR ---
Pt to dc home with today. Pt has RW and CPM. Pt to provide pt ride home around 4 pm. SW discussed HH services again with pt and SW arranged therapy HH follow up with pt through pt preference of [facility]. [phone] fax [phone]
[2019-07-24 17:03] VITALS: BP 138/65
--- NOTE | 2019-07-24 17:03 | NUR ---
PT DC HOME WITH HOME HEALTH. PHYSICAL THERAPY WORKED WITH PT TWICE TODAY. PT GIVEN PRESCRIPTIONS AND DC INUSTRUCTIONS AND VERBALIZES UNDERSTANDING. ALL BELONGINGS SENT WITH PT. SEE ASSESSMENT AND VITALS FOR OTHER DETAILS.
[2019-08-20] MEDS ORDERED: METHADONE HCL 110 M1 PO (10:56)
== END 2019-07-24 17:00 | disposition home health service (06) | DRG 470 ==
LOC: M.PRE → M.3W 10:05 → M.TBA 10:05 → M.ICU 10:05 → M.PRE 13:04 → M.ICU 16:28 → M.PRE 17:05 → M.ICU 07-22 07:12 → M.3W 07-22 12:16
PROVIDERS: Internal Medicine; Orthopaedic Surgery; ADMIT Internal Medicine
PROC: 0SRD0J9 Replacement of Left Knee Joint with Synthetic Substitute, Cemented, Open Approach (ICD-10-PCS; principal; 2019-07-21)
PROC: 5A09357 Assistance with Respiratory Ventilation, Less than 24 Consecutive Hours, Continuous Positive Airway Pressure (ICD-10-PCS; 2019-07-21)
PROC: 5A09357 Assistance with Respiratory Ventilation, Less than 24 Consecutive Hours, Continuous Positive Airway Pressure (ICD-10-PCS; 2019-07-22)
DX: M17.12 Unilateral primary osteoarthritis, left knee (principal); G89.29 Other chronic pain; N40.0 Benign prostatic hyperplasia without lower urinary tract symptoms; K59.00 Constipation, unspecified; N40.1 Benign prostatic hyperplasia with lower urinary tract symptoms; R33.8 Other retention of urine; Z90.49 Acquired absence of other specified parts of digestive tract; Z79.891 Long term (current) use of opiate analgesic; Z23 Encounter for immunization; Z79.899 Other long term (current) drug therapy

== ENCOUNTER → 2019-08-20 | Outpatient (CLI) | payer OTHER ==
[~2019-08-20] MED LIST changes: +DOK PLUS TABLE1 EACH PO; +MIRALAX17 GM PO; +XARELTO10 MG PO
--- NOTE | 2019-08-25 10:01 | PAINCON ---
[address] [address] PAIN MANAGEMENT CONSULTATION Name: TODDEBBY LOPEZ [id number] Admission: 08/20/19 Attend Phys: Parish Lee MD Discharge: Date of : 40 Report #: [id number] THIS REPORT FOR: //name// CC: Parish Steward MD DATE OF SERVICE: 08/20/2019 PRIMARY CARE PHYSICIAN: Felix Steward MD CHIEF COMPLAINT: Left knee pain. HISTORY: The patient is a 79-year-old gentleman who has been followed in the pain clinic because of spinal stenosis. He is having some pain and discomfort today, which primarily involves his left knee. He had his left knee replaced about a month ago. He is doing physical therapy. He is feeling better about life. He has had 4-5 back surgeries. He continues note a deterioration in his muscle strength and physical condition. He continues to use his electric chair to ambulate. Does have abdominal aortic aneurysm. Pain is worse in the morning. Feels that the gabapentin medication in conjunction with Lyrica and methadone are beneficial. He is somewhat concerned. He feels that his may be showing some signs of Alzheimer's. Feels a strong obligation to be around to take care of her. ALLERGIES: LIPITOR. CURRENT MEDICATIONS: Aspirin 81 mg, fish oil 1000 mg, gabapentin 600 mg q.i.d., Meloxicam 7.5 mg, methadone 10 mg 1 p.o. b.i.d., Flonase 0.5 mg q.12 hours, Cymbalta 30 mg b.i.d. PAIN CLINIC ASSESSMENT AND PQRS: 1. The patient has some arthritic changes in his upper extremity. He has been in the lower back. He has had a recent knee replacement in the left side, has arthritic changes in his hands and in the fingers. The patient is not being treated for rheumatoid arthritis. 2. Height 5 feet 8 inches, weight 250 pounds, BMI is 38. 3. Vital signs: Blood pressure 135/60, heart rate 77, respiratory rate 16, room air saturation 92, temperature 98.0. 4. Pain intensity 5/10. 5. Fall history: The patient has not fallen in the last 3 months. 6. Blood thinner. The patient is not on a blood thinning medication. 7. Opioids greater than 6 weeks. The patient receives medications from one source, pain clinic. 8. Risk assessment tool[place] [address] PAIN MANAGEMENT CONSULTATION Name: DEBBY BARON Room: [facility]#: [id number] Admission: 08/20/19 Attend Phys: Parish Lee MD Discharge: Date of : 40 Report #: [id number] PHYSICAL EXAMINATION: GENERAL: The patient is a well-developed, well-nourished white male. Appears his stated age. He is alert and oriented x 3. His affect is appropriate. Speech is fluent. NECK: Without adenopathy or JVD. HEART: Regular rate. ABDOMEN: Protuberant. Bowel sounds present. EXTREMITIES: Upper extremity muscle strength judged to be 4+/5 for the major muscle groups in the upper extremity. The patient has findings in his hands consistent with osteoarthritis/rheumatoid changes. The patient has difficulty standing. Rides in his chair. Feels weakness in his lower extremities. Difficulty ambulating at home and in public. Recent left knee surgery, well-healed scar in the lower portion of his back. Muscle strength in lower extremity 4-/5. IMPRESSION: 1. Chronic pain treated with complex medical management using opioids. 2. Symptomatic lumbar radiculopathy. 3. Lumbosacral spondylosis with radicular symptoms. 4. Lumbar degeneration. 5. Failed back syndrome/spinal surgery. 6. Failed spinal cord stimulator trial. 7. Chronic intractable pain. 8. Depression. 9. Aortic aneurysm, 5 cm. RECOMMENDATIONS: We discussed treatment options with the patient. At this juncture, we will continue with his medications. He feels that the methadone medication is beneficial. Feels that the Lyrica was helpful, but stopped taking it after about a month. Feels that the meloxicam is beneficial. Continues to use the hydrocodone q.6 hours p.r.n. He is aware that opioid medications can be problematic for some patients. He has taken his medication as prescribed. We have discussed the fact that 70,000 people as a result of overdose of the medication last year. He has noticed changes in his 's mental status. She is beginning to show more signs of Alzheimer's. This has renewed his need to continue to watch over her as time goes on. He will call the pain clinic should he have any problem with his medications. We would like to thank you for letting us participate in his care. We will continue with his chronic pain management using opioid medications to help improve his life situation. <ELECTRONICALLY SIGNED> By: Parish Lee MD 08/25/19 1001 [id number] [id number]. Jeremi Lee MD /nt
== END ==
LOC: M.PC 05:33
DX: G89.4 Chronic pain syndrome (principal); M47.26 Other spondylosis with radiculopathy, lumbar region; M51.16 Intervertebral disc disorders with radiculopathy, lumbar region; M48.061 Spinal stenosis, lumbar region without neurogenic claudication; F32.9 Major depressive disorder, single episode, unspecified; Z79.891 Long term (current) use of opiate analgesic; Z79.899 Other long term (current) drug therapy

== ENCOUNTER → 2019-11-12 | Outpatient (CLI) | payer OTHER ==
[~2019-11-12] MED LIST changes: +MEDROLDOSEPACK PO
--- NOTE | 2019-11-27 08:24 | PAINCON ---
[address] [address] PAIN MANAGEMENT CONSULTATION Name: TODDEBBY LOPEZ Room: [facility] John.#: [id number] Admission: 11/12/19 Attend Phys: Parish Lee MD Discharge: Date of : 40 Report #: [id number] THIS REPORT FOR: //name// cc: Romero Atkinson MD, Jason MD ~ THIS REPORT FOR: //name// CC: Romero Steward MD The patient was seen on 11/12/[address] Jeremi Lee. CHIEF COMPLAINT: Low back pain, neck pain, and weakening of lower extremity muscles. HISTORY: The patient is a 79-year-old gentleman who has been followed in the pain clinic because of chronic pain. He suffers from spinal stenosis. He continues to note some weakening of his lower extremities. He does use an electric cart for ambulation. He has pain in his low back area. He has pain in his neck and shoulders. He feels that his legs are getting much weaker at this point. It is harder for him to get in and out of his vehicle. He did have a recent left knee replacement. He has had to stop physical therapy due to the exercises hurting his back. He does have some right sided numbness. He rates his pain as a 5/10 at this point. He is taking care of his who is beginning to show more signs of Alzheimer's disease. ALLERGIES: LIPITOR. CURRENT MEDICATIONS: Aspirin 81 mg, fish oil 1000 mg, gabapentin 600 mg q.i.d., meloxicam 7.5 mg, methadone 10 mg 1 p.o. b.i.d., Flonase 0.5 mg q.12 hours, Cymbalta 30 mg b.i.d. PAIN CLINIC ASSESSMENT/PQRS: 1. The patient has arthritic changes in his upper extremity. He has been treated for his low back because of spinal stenosis. He has a recent left knee replacement. He has arthritic changes involving his hands at his fingers. He is not being treated for rheumatoid arthritis. 2. Height 5 feet 8 inches, weight 250 pounds, BMI is 38. 3. Vital Signs: Blood pressure 146/67, heart rate 69, respiratory rate 18, room air saturation 95%, temperature is 98.7. 4. Pain intensity is 5/10. 5. Fall history: The patient has not fallen in the last 3 months. 6. Blood thinner. The patient is not on a blood thinning medication. 7. Hypertension. The patient is not being treated for hypertension. 8. Risk assessment tool, low for opioid use. 9. Opioids greater than 6 weeks, receives medication from one source, [place] [address] PAIN MANAGEMENT CONSULTATION Name: DEBBY BARON Room: [facility] ANIBAL Young#: [id number] Admission: 11/12/19 Attend Phys: Parish Lee MD Discharge: Date of : 40 Report #: [id number] clinic. 10. Blood thinner. The patient is not on blood thinning medication. 11. Tobacco: The patient denies use of tobacco at this juncture. PHYSICAL EXAMINATION: GENERAL: The patient is a well-developed, well-nourished white male who appears his stated age. He is alert and oriented x 3. His affect is appropriate. Speech is fluent. HEENT: Normocephalic, atraumatic. Extraocular eye muscles intact. Sclerae are nonicteric. Mucous membranes are moist. NECK: The patient complains of some pain and discomfort in his neck as well as in his shoulders. He has pain in the low back area. LUNGS: Generally clear. HEART: Regular rate. ABDOMEN: Bowel sounds present. EXTREMITIES: Upper extremity muscle strength judged to be 4+/5 for the major muscle groups in the upper extremity. The patient has findings in his hands, which are consistent with osteoarthritis/rheumatoid logical changes. The patient has difficulty standing. He rides in a motorized wheelchair. He complains of increasing weakness in his lower extremities. He has difficulty ambulating at home and in public. Recent left knee surgery, well healing scar in the low back area. Muscle strength in the lower extremity 4-/5. IMPRESSION: 1. Chronic pain treated with complex medical management using opioids. 2. Symptomatic lumbar radiculopathy. 3. Lumbosacral spondylosis with radicular symptoms. 4. Lumbar degeneration. 5. Failed back syndrome/spinal surgery. 6. Failed spinal cord stimulator trial. 7. Chronic intractable pain. 8. Depression. 9. Aortic aneurysm of 5 cm size followed by his primary. RECOMMENDATIONS: We discussed treatment with the patient. At this juncture, we will continue with his medications. He feels medications continue to be helpful. He feels that the meloxicam remains beneficial. We will continue with his medications. A script for his medications has been rewritten. He will continue with methadone 10 mg 1 p.o. b.i.d. He will also continue with hydrocodone 10/325 one p.o. q.4-6 hours p.r.n. pain. He will call us if he has any concerns. Overall, he feels that the medications continue to be beneficial. He is aware that opioids can become less effective as time goes on secondary to development of tolerance. He keeps his medications in a guarded area. He will also continue with gabapentin 600 mg 1 p.o. q.i.d. He will continue with MiraLax for bowel support. He will also continue with docus[place] [address] PAIN MANAGEMENT CONSULTATION Name: DEBBY BARON Room: [facility]#: [id number] Admission: 11/12/19 Attend Phys: Parish Lee MD Discharge: Date of : 40 Report #: [id number] We would like to thank you for letting us participate in his care. We hope he continues to improve. <ELECTRONICALLY SIGNED> By: Parish Lee MD 11/27/19 0824 [id number]. Jeremi Lee MD /nt
== END ==
LOC: M.PC 10:00
DX: M47.26 Other spondylosis with radiculopathy, lumbar region (principal); M47.818 Spondylosis without myelopathy or radiculopathy, sacral and sacrococcygeal region; M51.16 Intervertebral disc disorders with radiculopathy, lumbar region; F32.9 Major depressive disorder, single episode, unspecified; I71.9 Aortic aneurysm of unspecified site, without rupture; M62.81 Muscle weakness (generalized)

== ENCOUNTER → 2020-04-07 | Outpatient (CLI) | payer OTHER ==
--- NOTE | 2020-04-21 15:59 | PAINCON ---
[address] [address] PAIN MANAGEMENT CONSULTATION Name: TODDEBBY Patti Room: [facility] ANIBAL VermaEmanuel#: [id number] Admission: 04/07/20 Attend Phys: Parish Lee MD Discharge: Date of : 40 Report #: [id number] THIS REPORT FOR: //name// cc: Romero Atkinson MD, Jason MD ~ THIS REPORT FOR: //name// CC: Romero Lee DATE OF SERVICE: 04/07/2020 TELECONFERENCE VISIT We have discussed the visit with the patient and he elects to proceed. CHIEF COMPLAINT: Continued leg weakness. HISTORY: The patient is a 79-year-old gentleman who has been followed in the pain clinic because of chronic low back and leg pain. As you may recall, he continues to note some increased weakness in the lower extremities. He moves about in his house with a rolling walker. He has fallen. He does use a motorized vehicle when he is out in public. He notes that in the morning, his pain is problematic when he is getting out of bed. He notes that methadone continues to be helpful. He has continued to work to keep his leg strengthened. Notes that sitting, standing, and bending are problematic. He feels that things are virtually stable at this point. He rates his pain as a 5/10. There have been no significant changes since his last visit. ALLERGIES: LIPITOR. CURRENT MEDICATIONS: Aspirin 81 mg, fish oil 1000 mg, gabapentin 600 mg q.i.d., Meloxicam 7.5 mg, methadone 10 mg 1 p.o. b.i.d., Flonase 0.5 mg b.i.d., Cymbalta 30 mg b.i.d. PAIN CLINIC ASSESSMENT AND PQRS: 1. The patient has some arthritic changes in his upper extremity. He has changes in his lower extremity because of spinal stenosis and notes extreme weakness. The patient has had knee replacements on the left. He has some arthritic changes in his hands and fingers. He is not being treated for rheumatoid arthritis. 2. Height 5 feet 8 inches, past weight 250 pounds, BMI is 38. 3. Fall history. The patient has had some falls at home. None required medical attention. 4. Blood thinner. The patient is not on a blood thinning medication. 5. Hypertension. The patient is not being [place] [address] PAIN MANAGEMENT CONSULTATION Name: TODDEBBY Patti [facility]: [facility]#: [id number] Admission: 04/07/20 Attend Phys: Parish Lee MD Discharge: Date of : 40 Report #: [id number] 6. Opioids. The patient is receiving medications from one source, the pain clinic. 7. Risk assessment tool, moderate for opioid use. 8. Tobacco. The patient denies use of tobacco. 9. Alcohol. The patient denies use of alcoholic beverages. REVIEW OF SYSTEMS: CONSTITUTIONAL FINDINGS: No changes in constitutional findings. EARS, EYES, NOSE AND THROAT: No changes. CARDIOVASCULAR: Stable and unchanged. RESPIRATORY: Stable and unchanged. GASTROINTESTINAL: Unchanged. GENITOURINARY: No new changes. MUSCULOSKELETAL: Notes progressive weakening of his lower extremities associated with spinal stenosis. PSYCHIATRIC: The patient does feel somewhat despondent. He is nervous about the COVID-19. He is concerned about his whose memory continues to worsen. ENDOCRINE: No new changes. HEMATOLOGIC: No new changes. ALLERGIC/IMMUNOLOGIC: No new changes. IMPRESSION: 1. Chronic pain treated with complex medical management using opioids. 2. Symptomatic lumbar radiculopathy. 3. Lumbosacral spondylosis with radicular symptoms. 4. Lumbar degeneration. 5. Failed back syndrome, status post spinal surgery. 6. Failed spinal cord stimulator trial. 7. Chronic intractable pain. 8. Depression. 9. Aortic aneurysm of 5 cm, being watched by his primary physician. RECOMMENDATIONS: We discussed treatment options with the patient. At this juncture, he feels that his medications are helpful. He would like to continue their use. He is not having any problems with them. He is able to think clearly. A script for his medications has been renewed. The patient will receive his medications from his pharmacy. A script for methadone 10 mg 1 p.o. b.i.d. has been written. A second month for methadone has been provided as well as the third month for methadone. The patient will also continue with MiraLax to help with constipation. He will continue to use Senokot and docusate [place] [address] PAIN MANAGEMENT CONSULTATION Name: TODDEBBY Patti Room: [facility]#: [id number] Admission: 04/07/20 Attend Phys: Parish Lee MD Discharge: Date of : 40 Report #: [id number] We would like to thank you for letting us participate in his care. We hope he continues to improve. <ELECTRONICALLY SIGNED> By: Parish Lee MD 04/21/20 1559 [id number]. Jeremi Lee MD /[facility]
== END ==
LOC: M.PC 04:52
PROVIDERS: ATTEND Anesthesiology Pain Medicine
DX: M62.81 Muscle weakness (generalized) (principal); M47.27 Other spondylosis with radiculopathy, lumbosacral region; M51.16 Intervertebral disc disorders with radiculopathy, lumbar region; M96.1 Postlaminectomy syndrome, not elsewhere classified; G89.29 Other chronic pain; F32.9 Major depressive disorder, single episode, unspecified; I71.9 Aortic aneurysm of unspecified site, without rupture; I10 Essential (primary) hypertension; F11.20 Opioid dependence, uncomplicated; Z79.899 Other long term (current) drug therapy

== ENCOUNTER → 2020-07-07 | Outpatient (CLI) | payer OTHER ==
[~2020-07-07] MED LIST changes: +DOCUSATE SODIU100 MG PO
--- NOTE | ~2020-07-07 | PAINCON ---
[address] [address] PAIN MANAGEMENT CONSULTATION Name: TODDEBBY Patti Room: [facility] Young#: [id number] Admission: 07/07/20 Attend Phys: Parish Lee MD Discharge: Date of : 40 Report #: [id number] THIS REPORT FOR: //name// cc: Romero Atkinson MD, Jason MD ~ THIS REPORT FOR: //name// CC: Romero Lee DATE OF SERVICE: 07/07/2020 CHIEF COMPLAINT: Continued low back pain, legs still continuing to get weaker. I have not as active as I probably should be. HISTORY: The patient is an 80-year-old gentleman who has been followed in the pain clinic because of chronic pain and discomfort. He has a history of chronic pain. 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 He does ambulate using electric cart. He has more and more difficulty ambulating because of his weakness. Takes him some increased amount of time to get his motorized cart on the car. Also more time to carry out activities of daily living. He does try to vacuum. He is still concerned about his who's mental acuity continues to dwindle. He has difficulty sitting, standing, bending, and engage in activities of daily living. Does continue to feel somewhat depressed because of his status. He does feel that he might want to start anti-depressive medications in the future. He does not feel that there is a surgical option available to him. States that he has children, but that he must live their own lives. ALLERGIES: LIPITOR. CURRENT MEDICATIONS: Aspirin 81 mg, fish oil 1000 mg, gabapentin 600 mg q.i.d., Meloxicam 75 mg, methadone 10 mg 1 p.o. b.i.d., Flonase 0.5 mg b.i.d., Cymbalta 30 mg b.i.d. PAIN CLINIC ASSESSMENT AND PQRS: 1. The patient has some arthritic changes in his upper extremity. Also, has changes in his lower back with spinal stenosis with extreme weakness. The patient has had a knee replacement on the left. Has some arthritic changes in his hands. He is not being treated for rheumatoid arthritis. 2. Height 5 feet 8 inches, weight 260 pounds, BMI is 39. 3. Vital signs: Blood pressure 123/57, heart rate 83, respiratory rate 20, room air saturation 93%, temperature 97.4. 4. Pain intensity 6/10. 5. Fall history: The patient has not fallen since we saw him last. 6. Blood thinner. The patient is not on a blood [place] [address] PAIN MANAGEMENT CONSULTATION Name: DEBBY BARON Room: [facility]#: [id number] Admission: 07/07/20 Attend Phys: Parish Lee MD Discharge: Date of : 40 Report #: [id number] 7. Hypertension. The patient is not being treated for hypertension. 8. Opioids greater than 6 weeks. The patient receives medication from the pain clinic. 9. Risk assessment tool, is moderate for opioid use. 10. Tobacco: The patient denies use of tobacco. 11. Alcohol. The patient denies use of alcoholic beverages. PHYSICAL EXAMINATION: GENERAL: The patient is alert and oriented. HEENT: Normocephalic, atraumatic. Extraocular eye muscles intact. Sclerae nonicteric. Mucous membranes are moist. NECK: Without adenopathy or JVD. The patient is sitting on his electric motor scooter. LUNGS: Clear. HEART: Regular rate. ABDOMEN: Nontender. MUSCULOSKELETAL: Upper extremity muscle strength, the patient notes significant changes in his hands because of osteoarthritic changes both left and right. Lower extremity, the patient has muscle strength in the lower extremity approximately 3+/5 for the major muscle groups in the lower extremity. Ambulates using a motorized wheelchair. States that he is noticing significantly more weakness in his lower extremity. IMPRESSION: 1. Chronic pain related to the pain with complex medical management using opioids. 2. Symptomatic lumbar radiculopathy. 3. Lumbosacral spondylosis with radicular symptoms. 4. Lumbar degeneration. 5. Failed back syndrome/spinal cord surgery. 6. Failed spinal cord stimulation trial. 7. Chronic intractable pain. 8. Depression. 9. Aortic aneurysm of 5 cm in size followed by his primary. RECOMMENDATIONS: We discussed treatment options with the patient. At this juncture, we will continue with his medications. A script for his medications have been provided. He will continue with methadone 10 mg 1 p.o. b.i.d. He will also continue with hydrocodone 10 mg 1 p.o. p.r.n. The patient is concerned that his 's mental status is continuing to decrease. He feels that he is becoming a bit more forgetful. He states that Alzheimer's type changes have "run in his side of the family." A script for his medications have been sent to his pharmacy. [address] [address] PAIN MANAGEMENT CONSULTATION Name: DEBBY BARON Room: [facility]#: [id number] Admission: 07/07/20 Attend Phys: Parish Lee MD Discharge: Date of : 40 Report #: [id number] We would like to thank you for letting us participate in his care. We hope he continues to improve. By: [id number]. Jeremi Lee MD /leslie
== END ==
LOC: M.PC 05-05 11:40
PROVIDERS: ATTEND Anesthesiology Pain Medicine
DX: M47.27 Other spondylosis with radiculopathy, lumbosacral region (principal); M51.06 Intervertebral disc disorders with myelopathy, lumbar region; M51.16 Intervertebral disc disorders with radiculopathy, lumbar region; M96.1 Postlaminectomy syndrome, not elsewhere classified; G89.29 Other chronic pain; F32.9 Major depressive disorder, single episode, unspecified; I70.0 Atherosclerosis of aorta; Z88.8 Allergy status to other drugs, medicaments and biological substances; Z79.899 Other long term (current) drug therapy